=== PATIENT | female | born 1970 | race Caucasian/White ===

== ENCOUNTER 2017-01-10 10:17 | Emergency (ER) | payer MEDICAID ==
[2017-01-10] MEDS ORDERED: PROPARACAINE 0.5% OPHTH DROPS 15 ML EACHEYE STA (14:09)
[2017-01-10] MEDS ORDERED: PROPARACAINE 0.5% OPHTH DROPS 15 ML ONE (14:23)
== END 2017-01-10 14:53 | disposition home or self-care (01) ==
DX: H18.823 Corneal disorder due to contact lens, bilateral (principal); R03.0 Elevated blood-pressure reading, without diagnosis of hypertension; F17.200 Nicotine dependence, unspecified, uncomplicated
CPT/HCPCS: 81025; 99283; J3490

== ENCOUNTER 2020-04-14 12:40 | Emergency (ER) | payer MEDICAID ==
--- NOTE | 2020-04-14 13:17 | XRAY Report ---
PROCEDURE: Chest 1 View X-Ray INDICATIONS: Chest pain TECHNIQUE: One view of the chest was acquired. COMPARISON: None FINDINGS: Surgical changes and devices: None. Lungs and pleura: No pleural effusions or pneumothorax. Increased airspace opacity in right lower cem ng field is seen concerning for developing right lower lobe infiltrate. Left lung is clear. Mediastinum: Mediastinal contours appear normal. Heart size is normal. Bones and chest wall: No suspicious bony lesions. Overlying soft tissues appear unremarkable. IMPRESSION: Finding is concerning for developing right lower lobe infiltrate. No pleural effusion or pneumothorax . Reviewed by: Torres Guillen MD on 04/14/2020 1:15 PM PDT Approved by: Torres Guillen MD on 04/14/2020 1:15 PM PDT Station ID: [id number]
--- NOTE | 2020-04-14 13:19 | ED Physician Documentation ---
History of Present Illness - Stated complaint Stated Complaint: LOW BP/CHEST PRESSURE/FATIGUE - Chief complaint Chief Complaint: Cardiac - History obtained from History obtained from: Patient - History of Present Illness Timing: Today Pain level max: 4 Pain level now: 3 - Additonal information Additional information: 49-year-old female presents to the emergency department stating that she has not felt well for the past 2 months. She has had intermittent diarrhea, lightheadedness occasionally. States her blood pressure is been slightly lower than normal. She states that her heart rate does go higher than usual as well. Occasionally she has chest discomfort. Nonradiating. Nothing makes it better or worse. She states that she has muscle aches as well. She does smoke cigarettes but does not drink or use any other recreational drugs including marijuana. Has not seen a doctor for this. He is on no medications at home. She is adopted, does not know her family history. She has had no fevers. No cough. No nausea or vomiting. No rash. Review of Systems Constitutional: denies: Fever, Chills Nose: denies: Rhinorrhea / runny nose, Congestion Throat: denies: Sore throat Cardiac: denies: Chest pain / pressure Respiratory: denies: Dyspnea, Cough, Wheezing GI: reports: Diarrhea (Loose stools, has been a problem for years. Nonbloody.). denies: Nausea, Vomiting, Hematemesis, Bloody / black stool Skin: denies: Rash Musculoskeletal: denies: Neck pain, Back pain Neurologic: reports: Generalized weakness. denies: Focal weakness, Numbness, Syncope, Seizure, Confused, Altered mental status, Headache PD PAST MEDICAL HISTORY - Past Medical History Past Medical History: No - Past Surgical History Past Surgical History: Yes /[employer]: section, Breast implants - Present Medications Home Medications: Ambulatory Orders Medication Instructions Recorded Confirmed Nitrofurantoin [Macrobid] 100 mg PO DAILY 01/10/17 01/10/17 Doxycycline Hyclate 100 mg PO BID #20 capsule 04/14/20 - Allergies Allergies/Adverse Reactions: Allergies Allergy/AdvReac Type Severity Reaction Status Date / Time sulfamethoxazole Allergy Rash Verified 01/10/17 10:30 [From Bactrim] trimethoprim [From Bactrim] Allergy Rash Verified 01/10/17 10:30 - Living Situation Living Arrangement: reports: At home - Social History Does the pt smoke?: Yes Smoking Status: Current every day smoker Does the pt drink ETOH?: Yes Does the pt have substance abuse?: No - Family History Family history: reports: Non contributory - POLST Patient has POLST: No PD ED PE NORMAL - Vitals Vital signs reviewed: Yes - General General: Alert and oriented X 3, No acute distress, Well developed/nourished - HEENT HEENT: PERRL, Ears normal, Moist mucous membranes, Pharynx benign - Neck Neck: Supple, no meningeal sign, No JVD, No bruit - Cardiac Cardiac: RRR, Strong equal pulses - Respiratory Respiratory: No respiratory distress, Clear bilaterally - Abdomen Abdomen: Soft, Non tender, Non distended - Derm Derm: Warm and dry, No rash - Extremities Extremities: No edema, No calf tenderness / cord - Neuro Neuro: Alert and oriented X 3, 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, No motor deficit, No sensory deficit, Normal speech Eye Opening: Spontaneous Motor: Obeys Commands Verbal: Oriented GCS Score: 15 - Psych Psych: Normal mood, Normal affect Results - Vitals Vitals: Vital Signs - 24 hr 04/14/20 04/14/20 04/14/20 12:46 12:50 13:20 Temperature 36.4 C L Heart Rate 87 80 76 Respiratory 16 18 16 Rate Blood Pressure 127/70 145/83 H 111/68 O2 Saturation 96 99 99 04/14/20 04/14/20 04/14/20 13:30 14:30 16:13 Temperature 37.1 C Heart Rate 75 80 82 Respiratory 15 16 20 Rate Blood Pressure 103/66 113/71 119/61 O2 Saturation 98 99 99 04/14/20 16:14 Temperature Heart Rate 72 Respiratory 18 Rate Blood Pressure 119/61 O2 Saturation 99 Oxygen O2 Source Room air - EKG (time done) 1314 Rate: Rate (enter#) (78) Rhythm: NSR [place]: Normal Intervals: Normal [place] QRS: Normal Ischemia: Normal ST segments - Labs Labs: Laboratory Tests 04/14/20 04/14/20 04/14/20 14:01 14:01 14:01 WBC 11.4 H RBC 4.44 Hgb 11.0 L Hct 35.3 L MCV 79.5 L MCH 24.8 L MCHC 31.2 L RDW 16.4 H Plt Count 304 MPV 12.1 H Neut # (Auto) 8.1 H Lymph # (Auto) 2.1 [place] # (Auto) 0.9 Eos # (Auto) 0.2 Baso # (Auto) 0.1 Absolute Nucleated RBC 0.00 Nucleated RBC % 0.0 ESR Sodium 136 Potassium 3.9 Chloride 104 Carbon Dioxide 26 Anion Gap 6.0 BUN 14 Creatinine 0.6 Estimated GFR (MDRD) 106 Glucose 98 Calcium 8.5 Phosphorus 4.1 Magnesium 2.0 Total Bilirubin 0.4 AST 14 ALT 16 Alkaline Phosphatase 71 Total Creatine Kinase 50 Troponin I High Sens < 2.3 L C-Reactive Protein < 1.0 Total Protein 6.4 L Albumin 3.5 Globulin 2.9 Albumin/Globulin Ratio 1.2 Lipase 27 TSH Free T4 Urine Color Urine Clarity Urine pH Ur Specific [place] Urine Protein Urine Glucose (UA) Urine Ketones Urine Occult Blood Urine Nitrite Urine Bilirubin Urine Urobilinogen Ur Leukocyte Esterase Ur Microscopic Review Urine Culture Comments 04/14/20 04/14/20 04/14/20 14:01 14:01 14:35 WBC RBC Hgb Hct MCV MCH MCHC RDW Plt Count MPV Neut # (Auto) Lymph # (Auto) [place] # (Auto) Eos # (Auto) Baso # (Auto) Absolute Nucleated RBC Nucleated RBC % ESR 9 Sodium Potassium Chloride Carbon Dioxide Anion Gap BUN Creatinine Estimated GFR (MDRD) Glucose Calcium Phosphorus Magnesium Total Bilirubin AST ALT Alkaline Phosphatase Total Creatine Kinase Troponin I High Sens C-Reactive Protein Total Protein Albumin Globulin Albumin/Globulin Ratio Lipase TSH 1.71 Free T4 0.84 Urine Color YELLOW Urine Clarity CLEAR Urine pH 5.5 Ur Specific [place] 1.015 Urine Protein NEGATIVE Urine Glucose (UA) NEGATIVE Urine Ketones NEGATIVE Urine Occult Blood NEGATIVE Urine Nitrite NEGATIVE Urine Bilirubin NEGATIVE Urine Urobilinogen 0.2 (NORMAL) Ur Leukocyte Esterase NEGATIVE Ur Microscopic Review NOT INDICATED Urine Culture Comments NOT INDICATED - Rads (name of study) cxr Radiology: Prelim report reviewed, EMP read contemporaneously, See rad report (RLL pneumonia) PD MEDICAL DECISION MAKING - ED course Complexity details: reviewed results, re-evaluated patient, considered differential, d/w patient ED course: Patient with what appears to be a right lower lobe pneumonia. Will start on doxycycline for this. She is well-appearing, nontoxic. Otherwise normal laboratory testing. We will have her follow-up with her primary care doctor for further evaluation. Ambulating well. No neurological deficits. Patient counseled regarding signs and symptoms for which I believe and urgent re- evaluation would be necessary. Patient with good understanding of and agreement to plan and is comfortable going home at this time This document was made in part using voice recognition software. While efforts are made to proofread this document, sound alike and grammatical errors may occur. Departure - Departure Disposition: 01 Home, Self Care Clinical Impression: Pneumonia Qualifiers: Pneumonia type: due to unspecified organism Laterality: right Lung location: lower lobe of lung Qualified Code(s): J18.9 - Pneumonia, unspecified organism Condition: Good Instructions: ED Pneumonia Adult Follow-Up: [facility] [Provider Group] [facility] [Provider Group] Prescriptions: Doxycycline Hyclate 100 mg PO BID #20 capsule Comments: Take all antibiotics until gone. Return if you worsen. Drink plenty of fluids and rest. You should follow-up with a primary care doctor within the next week or so. Discharge Date/Time: 04/14/20 16:31
[2020-04-14] MEDS ORDERED: SODIUM CHLORIDE 0.9% 1,000 ML IV STA ×2 (13:42)
[2020-04-14 14:11] LABS: BASOPHILS # (AUTO) 0.1 10^3/uL (0.0-0.1); BASOPHILS % (AUTO) 0.6 %; MONOCYTES % (AUTO) 8.2 %; RED CELL DISTRIBUTION WIDTH 16.4 % (12.0-15.0)
[2020-04-14 14:16] LABS: EOSINOPHILS # (AUTO) 0.2 10^3/uL (0.0-0.7); LYMPHOCYTES # (AUTO) 2.1 10^3/uL (1.5-3.5); LYMPHOCYTES % (AUTO) 18.1 %; MEAN CORPUSCULAR HEMOGLOBIN 24.8 pg (27.0-31.0); MEAN CORPUSCULAR HGB CONC 31.2 g/dL (32.0-36.0); MEAN CORPUSCULAR VOLUME 79.5 fL (81.0-99.0); MEAN PLATELET VOLUME 12.1 fL (7.9-10.8); MONOCYTES # (AUTO) 0.9 10^3/uL (0.0-1.0); NEUTROPHILS # (AUTO) 8.1 10^3/uL (1.5-6.6); NEUTROPHILS % (AUTO) 70.7 %; PLT - PLATELET COUNT 304 10^3/uL (130-450); RED BLOOD COUNT 4.44 10^6/uL (4.20-5.40); WHITE BLOOD COUNT 11.4 x10^3/uL (4.8-10.8)
[2020-04-14 14:34] LABS: ALBUMIN 3.5 g/dL (3.2-5.5); ALBUMIN/GLOBULIN RATIO 1.2 (1.0-2.2); ALKALINE PHOSPHATASE 71 IU/L (42-121); ALT ALANINE AMINOTRANSFERASE 16 IU/L (10-60); AST ASPARTATE AMINOTRANSFERASE 14 IU/L (10-42); BILIRUBIN,TOTAL 0.4 mg/dL (0.2-1.0); BUN - BLOOD UREA NITROGEN 14 mg/dL (6-20); CALCIUM 8.5 mg/dL (8.5-10.3); CARBON DIOXIDE - CO2 26 mmol/L (21-32); CHLORIDE 104 mmol/L (101-111); CK- CREATINE KINASE 50 IU/L (22-269); CREATININE 0.6 mg/dL (0.4-1.0); GLUCOSE 98 mg/dL (70-100); LIPASE 27 U/L (22-51); PHOSPHORUS 4.1 mg/dL (2.5-4.6); SODIUM 136 mmol/L (135-145); TOTAL PROTEIN 6.4 g/dL (6.7-8.2)
[2020-04-14 14:35] LABS: CRP - C-REACTIVE PROTEIN < 1.0 mg/dL (0-1.0)
[2020-04-14 14:41] LABS: BILIRUBIN,URINE NEGATIVE (NEGATIVE); GLUCOSE, URINE (UA) NEGATIVE (NEGATIVE); KETONES,URINE (UA) NEGATIVE (NEGATIVE); LEUKOCYTE ESTERASE, URINE NEGATIVE (NEGATIVE); NITRITE,URINE NEGATIVE (NEGATIVE); OCCULT BLOOD,URINE NEGATIVE (NEGATIVE); PH,URINE 5.5 PH (5.0-7.5); PROTEIN,URINE NEGATIVE (NEGATIVE); UROBILINOGEN,URINE 0.2 (NORMAL) E.U./dL (NORMAL)
[2020-04-14 14:42] LABS: CLARITY,URINE CLEAR (CLEAR)
[2020-04-14 14:46] LABS: THYROID STIMULATING HORMONE 1.71 uIU/mL (0.34-5.60)
[2020-04-14 14:48] LABS: FREE T4 (FREE THYROXINE) 0.84 ng/dL (0.58-1.64)
[2020-04-14] MEDS ORDERED: cefTRIAXone 1 GM VIAL IVP STA (15:46)
[2020-04-14 16:13] VITALS: BP 119/61
== END 2020-04-14 16:31 | disposition home or self-care (01) ==
LOC: ED 12:40
DX: J18.9 Pneumonia, unspecified organism (principal); F17.210 Nicotine dependence, cigarettes, uncomplicated; Z20.828 Contact with and (suspected) exposure to other viral communicable diseases
CPT/HCPCS: 36415; 71045; 80053; 81001; 81003; 81599; 82550; 83690; 83735; 84100; 84439; 84443; 84484; 85025; 85651; 86140; 87086; 93005; 96374; 99284

== ENCOUNTER 2020-04-28 12:43 | Outpatient (CLI) | payer MEDICAID ==
[2020-04-28 13:16] LABS: HGB - HEMOGLOBIN 11.9 g/dL (12.0-16.0); MEAN CORPUSCULAR HEMOGLOBIN 24.3 pg (27.0-31.0); MEAN CORPUSCULAR HGB CONC 30.5 g/dL (32.0-36.0); MEAN CORPUSCULAR VOLUME 79.6 fL (81.0-99.0); MEAN PLATELET VOLUME 12.3 fL (7.9-10.8); RED BLOOD COUNT 4.9 10^6/uL (4.20-5.40); RED CELL DISTRIBUTION WIDTH 16.3 % (12.0-15.0); WHITE BLOOD COUNT 10.4 x10^3/uL (4.8-10.8)
[2020-04-28 13:34] LABS: CRP - C-REACTIVE PROTEIN < 1.0 mg/dL (0-1.0); URIC ACID 4.3 mg/dL (2.6-7.2)
[2020-04-28 14:22] LABS: RHEUMATOID FACTOR NEGATIVE (Negative)
--- NOTE | 2020-04-28 15:56 | XRAY Report ---
PROCEDURE: Chest 2 View X-Ray INDICATIONS: PNEUMONIA, ORGANISM UNSPECIFIED TECHNIQUE: 2 view(s) of the chest. COMPARISON: Single view chest x-ray 04/14/2020 FINDINGS: Surgical changes and devices: Bilateral breast implants.. Lungs and pleura: No pleural effusions or pneumothorax. Lungs are clear. Mediastinum: Mediastinal contours are normal. Heart size is normal. Bones and chest wall: No suspicious bony abnormalities. Soft tissues appear unremarkable. IMPRESSION: No acute cardiopulmonary disease process. No evidence of pneumonia. Reviewed by: Alice Granger MD, PhD on 04/28/2020 3:54 PM PDT Approved by: Alice Granger MD, PhD on 04/28/2020 3:54 PM PDT Station ID: [id number]
[2020-05-02 16:04] LABS: ANA SCREEN NEGATIVE (NEGATIVE)
== END 2020-04-28 12:44 | disposition home or self-care (01) ==
LOC: LAB 12:43 → DI 12:44
PROVIDERS: ATTEND Family Medicine
DX: J18.9 Pneumonia, unspecified organism (principal); M25.50 Pain in unspecified joint
CPT/HCPCS: 36415; 71046; 84550; 85027; 85651; 86038; 86140; 86200; 86430

== ENCOUNTER 2020-05-08 13:58 | Outpatient (CLI) | payer MEDICAID ==
[2020-05-08 14:29] LABS: ABSOLUTE RETICS # AUTO 0.073 10^6/uL (0.020-0.110); BASOPHILS % (AUTO) 0.9 %; EOSINOPHILS % (AUTO) 3.1 %; HGB - HEMOGLOBIN 11.3 g/dL (12.0-16.0); LYMPHOCYTES % (AUTO) 22.3 %; MEAN CORPUSCULAR HEMOGLOBIN 24.2 pg (27.0-31.0); MEAN CORPUSCULAR HGB CONC 30.3 g/dL (32.0-36.0); MEAN PLATELET VOLUME 12.2 fL (7.9-10.8); MONOCYTES % (AUTO) 8.2 %; NEUTROPHILS % (AUTO) 65.1 %; PLT - PLATELET COUNT 300 10^3/uL (130-450); RED BLOOD COUNT 4.66 10^6/uL (4.20-5.40); RED CELL DISTRIBUTION WIDTH 16.1 % (12.0-15.0); WHITE BLOOD COUNT 9.9 x10^3/uL (4.8-10.8)
[2020-05-08 14:42] LABS: % IRON SATURATION 3 % (20-50); IRON 16 ug/dL (28-170); TOTAL IRON BINDING CAPACITY 617 ug/dL (250-450); TRANSFERRIN 441 mg/dL (192-382)
[2020-05-08 14:51] LABS: ABNORMAL LYMPHS % (MANUAL) 0 %; BAND NEUTROPHILS % (MANUAL) 1 %; DIFFERENTIAL COMMENT MANUAL DIFFERENTIAL; LYMPHOCYTES # (MANUAL) 3.4 10^3/uL (1.5-3.5); LYMPHOCYTES % (MANUAL) 34 %; MONOCYTES # (MANUAL) 0.3 10^3/uL (0.0-1.0); PLATELET ESTIMATE, MANUAL NORMAL (130-450,000) (NORMAL); PLATELET MORPHOLOGY NORMAL APPEARANCE (NORMAL); RBC MORPHOLOGY (MULTIPLE) NORMAL APPEARANCE (NORMAL)
[2020-05-08 14:58] LABS: FERRITIN 3.1 ng/mL (11.0-306.8)
== END 2020-05-08 13:59 | disposition home or self-care (01) ==
LOC: LAB 13:58
PROVIDERS: ATTEND Family Medicine
DX: D64.9 Anemia, unspecified (principal); M25.50 Pain in unspecified joint
CPT/HCPCS: 36415; 82607; 82728; 82747; 83540; 84466; 85025; 85045; 85651

== ENCOUNTER 2020-05-09 07:00 | Outpatient (CLI) | payer MEDICAID | END 2020-05-09 23:59 | disposition home or self-care (01) | LOC: LAB.R 07:00 | PROVIDERS: ATTEND Family Medicine | DX: D64.9 Anemia, unspecified (principal) | CPT/HCPCS: 82274 ==

== ENCOUNTER 2020-10-05 12:42 | Outpatient (CLI) | payer MEDICAID ==
[2020-10-05 12:53] LABS: EOSINOPHILS % (AUTO) 2.6 %; RED BLOOD COUNT 4.72 10^6/uL (4.20-5.40)
[2020-10-05 12:56] LABS: BASOPHILS % (AUTO) 0.6 %; HGB - HEMOGLOBIN 13.1 g/dL (12.0-16.0); LYMPHOCYTES % (AUTO) 19.9 %; MEAN CORPUSCULAR HEMOGLOBIN 27.8 pg (27.0-31.0); MEAN CORPUSCULAR VOLUME 89.6 fL (81.0-99.0); MEAN PLATELET VOLUME 11.4 fL (7.9-10.8); MONOCYTES % (AUTO) 7.4 %; PLT - PLATELET COUNT 219 10^3/uL (130-450); RED CELL DISTRIBUTION WIDTH 13.7 % (12.0-15.0); WHITE BLOOD COUNT 10.9 x10^3/uL (4.8-10.8)
[2020-10-05 12:57] LABS: ABNORMAL LYMPHS % (MANUAL) 0 %; BAND NEUTROPHILS % (MANUAL) 0 %
[2020-10-05 13:18] LABS: DIFFERENTIAL COMMENT MANUAL DIFFERENTIAL; EOSINOPHILS # (MANUAL) 0.2 10^3/uL (0-0.7); LYMPHOCYTES # (MANUAL) 2.6 10^3/uL (1.5-3.5); LYMPHOCYTES % (MANUAL) 24 %; MONOCYTES # (MANUAL) 0.7 10^3/uL (0.0-1.0); PLATELET ESTIMATE, MANUAL NORMAL (130-450,000) (NORMAL); PLATELET MORPHOLOGY NORMAL APPEARANCE (NORMAL); RBC MORPHOLOGY (MULTIPLE) NORMAL APPEARANCE (NORMAL)
== END 2020-10-05 12:43 | disposition home or self-care (01) ==
LOC: LAB 12:42
PROVIDERS: ATTEND Family Medicine
DX: D50.9 Iron deficiency anemia, unspecified (principal)
CPT/HCPCS: 36415; 85025

== ENCOUNTER 2020-12-07 08:00 | Outpatient (CLI) | payer MEDICAID ==
[2020-12-07 13:18] LABS: BASOPHILS # (AUTO) 0.1 10^3/uL (0.0-0.1); BASOPHILS % (AUTO) 0.7 %; EOSINOPHILS # (AUTO) 0.2 10^3/uL (0.0-0.7); EOSINOPHILS % (AUTO) 1.5 %; HGB - HEMOGLOBIN 13.3 g/dL (12.0-16.0); LYMPHOCYTES # (AUTO) 2.1 10^3/uL (1.5-3.5); LYMPHOCYTES % (AUTO) 17.5 %; MEAN CORPUSCULAR HEMOGLOBIN 27.4 pg (27.0-31.0); MEAN CORPUSCULAR HGB CONC 31.5 g/dL (32.0-36.0); MEAN CORPUSCULAR VOLUME 86.8 fL (81.0-99.0); MEAN PLATELET VOLUME 11.8 fL (7.9-10.8); MONOCYTES # (AUTO) 0.8 10^3/uL (0.0-1.0); MONOCYTES % (AUTO) 6.3 %; NEUTROPHILS % (AUTO) 73.7 %; PLT - PLATELET COUNT 289 10^3/uL (130-450); RED BLOOD COUNT 4.86 10^6/uL (4.20-5.40); RED CELL DISTRIBUTION WIDTH 13.8 % (12.0-15.0); WHITE BLOOD COUNT 12.2 x10^3/uL (4.8-10.8)
[2020-12-07 13:34] LABS: THYROID STIMULATING HORMONE 1.35 uIU/mL (0.34-5.60)
[2020-12-07 13:35] LABS: FREE T3 3.64 pg/mL (2.5-3.9)
[2020-12-07 13:36] LABS: FREE T4 (FREE THYROXINE) 0.87 ng/dL (0.58-1.64)
[2020-12-07 14:56] LABS: ALBUMIN 4.4 g/dL (3.2-5.5); ALBUMIN/GLOBULIN RATIO 1.3 (1.0-2.2); BILIRUBIN,TOTAL 0.6 mg/dL (0.2-1.0); CALCIUM 9.1 mg/dL (8.5-10.3); CREATININE 0.6 mg/dL (0.4-1.0); TOTAL PROTEIN 7.7 g/dL (6.7-8.2)
[2020-12-08 12:31] LABS: HEPATITIS C ANTIBODY NON-REACTIVE (NON-REACTIVE)
[2020-12-08 12:46] LABS: HIV AG/AB 4TH GEN NON-REACTIVE (NON-REACTIVE)
== END 2020-12-07 23:59 | disposition home or self-care (01) ==
LOC: LAB 08:00
PROVIDERS: ATTEND Nurse Practitioner Family
DX: R53.83 Other fatigue (principal); M25.50 Pain in unspecified joint; Z11.3 Encounter for screening for infections with a predominantly sexual mode of transmission
CPT/HCPCS: 36415; 80053; 82306; 84439; 84443; 84481; 85025; 86592; 86593; 86780; 86803; 87389